=== PATIENT | male | born 1995 | race Caucasian/White ===

== ENCOUNTER 2020-07-01 14:29 | Emergency (ER) | payer OTHER, SELFPAY ==
[2020-07-01 14:35] VITALS: BP 131/69; PULSE 89; RESP 18; TEMP 37.2; O2SAT 99
[2020-07-01] MEDS: DEXAMETHASONE 10 MG/ML VIAL PO (15:21)
[2020-07-01] MEDS: AMOXICILLIN 250 MG CAPSULE 500 MG PO (15:22)
--- NOTE | 2020-07-01 21:33 | ED_ITS ---
HPI - URI/Sore Throat <LILIYA Jara - Last Filed: 07/01/20 22:27> General Chief Complaint: Upper Respiratory Symptoms Stated Complaint: headche. 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 Patient reports swelling into left-sided lymph nodes and started to have mild dry cough today. Patient denies recent travel or exposure to known people who has COVID-19 or similar illness. Patient denies difficulty breathing or swallowing. He had taken Tylenol yesterday and Motrin 2 days ago. He denies unusual rashes, nuchal rigidity, muffled voice. Patient reports T-max at home was 101.0 F couple of days ago which resolved today. Related Data Home Medications Medication Instructions Recorded Confirmed No Known Home Medications 07/01/20 07/01/20 Previous Rx's Medication Instructions Recorded amoxicillin 500 mg PO BID 10 Days #20 cap 07/01/20 Allergies Allergy/AdvReac Type Severity Reaction Status Date / Time No Known Drug Allergies Allergy Verified 07/01/20 14:38 Review of Systems <LILIYA Jara - Last Filed: 07/01/20 22:27> Review of Systems Narrative: General: See HPI HEENT: See HPI Respiratory: Denies dyspnea, cough, wheezing, hemoptysis, sputum. Cardiovascular: Denies chest pain, palpitations, orthopnea, edema. Gastrointestinal: Denies nausea, vomiting, abdominal pain, diarrhea, constipation, melena. : Denies dysuria, frequency, incontinence, hematuria, urinary retention. Musculoskeletal: Denies weakness, joint pain or bony pain. Skin: Denies rash, skin lesions, or other. Neurologic: Denies weakness, (+) headache, numbness, change in speech, confusion, seizures, incoordination. Psychiatric: No concerning psychosocial issues. 12-point review of systems is negative except for those stated above. Patient History <LILIYA Jara Last Filed: 07/01/20 22:27> Medical History (Updated 07/01/20 @ 22:10 by LILIYA Jara) No significant past medical history (Acute) Surgical History (Updated 07/01/20 @ 22:10 by LILIYA Jara) No pertinent past surgical history (Acute) Social History Smoking Status: Never smoker Smoking Status: Never smoker alcohol intake frequency: a few times a month Substance Use Type: does not use Exam <LILIYA Jara - Last Filed: 07/01/20 22:27> Narrative Exam Narrative: GEN: Alert, oriented x 3, well appearing and nourished, and in no acute distress. Head: Normal cephalic, atraumatic. No scalp or temporal tenderness, palpable mass or rash. EYES: Pupils are equal, round, and reactive to light and accommodation. Extraocular muscles are intact bilaterally. There is no subconjunctival hemorrhage, exudate and sclera non-icteric. ENT: Bilateral auditory canals and tympanic membranes clear. Hearing grossly intact. Nose without bleeding, purulent discharge or deviation. Facial sinuses nontender to palpate. Mucous membrane moist, no mucosal lesion. Throat with erythema, tonsillar hypertrophy and exudate. Uvula in midline, airway patent. Neck: Trachea in midline and No JVD. Tender lymphadenopathy in anterior cervical and supra clavicle lymph nodes in left-sided. No masses or thyroid megaly. Supple, non-tender and no meningeal signs. CARDIAC: Normal regular rate and rhythm without murmurs, gallops, or rubs. No chest wall tenderness. No peripheral edema, cyanosis or pallor. Capillary refill is less than 2 seconds. RESPIRATORY: Lungs are clear to auscultate bilaterally. No cough, wheezes, rales, or rhonchi. No stridor, respiratory distress, increase work of breathing, or accessary muscle used. ABD: Abdomen soft, nontender and non-distended. No guarding or rebound tenderness to palpate. Bowel sounds are normal in all 4 quadrants. There is no palpable masses or organomegaly. EXT: Full painless ROM of all extremities with no loss of sensation, strength, effusion or edema. SKIN: Warm, dry, normal color for patient. No erythema, lesions or rash over visible areas. BACK: Nontender without deformity or crepitance. No flank tenderness. NEUROLOGICAL: Alert and oriented to place, time and person. Sensation and motor function intact bilaterally. No facial droops, dysphasia. PSYCHIATRIC: Good judgement and reason, without hallucinations, abnormal affect or abnormal behaviors during the examination. Patient is not suicidal. Initial Vital Signs Initial Vital Signs: Vital Signs Temperature 98.9 F 07/01/20 14:35 Pulse Rate 89 07/01/20 14:35 Respiratory Rate 18 07/01/20 14:35 Blood Pressure 131/69 07/01/20 14:35 Pulse Oximetry 99 07/01/20 14:35 <Crystal Fowler DO - Last Filed: 07/02/20 07:11> Initial Vital Signs Initial Vital Signs: Vital Signs Temperature 98.9 F 07/01/20 14:35 Pulse Rate 89 07/01/20 14:35 Respiratory Rate 18 07/01/20 14:35 Blood Pressure 131/69 07/01/20 14:35 Pulse Oximetry 99 07/01/20 14:35 Scores <LILIYA Jara - Last Filed: 07/01/20 22:27> GCS Maribel coma scale eye opening: Spontaneous Maribel coma scale verbal response: Orientated Maribel coma scale motor response: Obey commands Maribel coma scale total score: 15 Citation: Centor score 4 Course <LILIYA Jara - Last Filed: 07/01/20 22:27> Orders Ordered: Discontinued Medications Amoxicillin (Trimox) 500 mg PO NOW ONE Stop: 07/01/20 15:13 Last Admin: 07/01/20 15:22 Dose: 500 mg Documented by: DAMIAN Dexamethasone (Decadron) 10 mg PO NOW ONE Stop: 07/01/20 14:56 Last Admin: 07/01/20 15:21 Dose: 10 mg Documented by: DAMIAN Vital Signs Vital signs: Vital Signs - 8 hr 07/01/20 14:35 Temperature 98.9 F Pulse Rate 89 Respiratory Rate 18 Blood Pressure 131/69 Pulse Oximetry 99 <DO Panchito Mcpherson Last Filed: 07/02/20 07:11> Orders Ordered: Discontinued Medications Amoxicillin (Trimox) 500 mg PO NOW ONE Stop: 07/01/20 15:13 Last Admin: 07/01/20 15:22 Dose: 500 mg Documented by: DAMIAN Dexamethasone (Decadron) 10 mg PO NOW ONE Stop: 07/01/20 14:56 Last Admin: 07/01/20 15:21 Dose: 10 mg Documented by: DAMIAN Vital Signs Vital signs: Vital Signs - 8 hr 07/01/20 14:35 Temperature 98.9 F Pulse Rate 89 Respiratory Rate 18 Blood Pressure 131/69 Pulse Oximetry 99 MDM - URI/Sore Throat <LUANN JaraP - Last Filed: 07/01/20 22:27> Differential Diagnosis Differential diagnosis: Likely upper respiratory infection, otitis media, pharyngitis and other (Strep pharyngitis, mononucleosis infection) Medical Records Attestation: I reviewed the patient's medical records. Lab Data Attestation: I reviewed the patient's lab results. Labs: Point of Care Testing Rapid Strep A Negative MDM Narrative Medical decision making narrative: POC strep throat test was negative. However patient's physical exam is highly likely strep infection with erythema, hypertrophic tonsils with white exudate. Throat culture is pending. Considered Infectious monoinfection however patient is not toxic appearing or endorses severe fatigue and has normal sounding voice and has only on one side lymphadenopathy. Will treat with Amoxicillin as bacterial pharyngitis at this time and medicated with 1st dose in ED. Patient declined Tylenol and or Motrin in ED. He was medicated with dexamethasone orally for sore throat and swelling. Patient informed if he develops rash with amoxicillin use, it is likely the patient has mononucleosis infection. Advised to avoid contact sports to protect spleen. Return precautions were discussed with patient and advised to use ov [id number] Tylenol and or Motrin as needed for discomfort and to follow-up with primary care physician in couple of days. If rash develops, patient advised to stop taking amoxicillin and he verbalized the understanding and agreement with the treatment plan. <Crystal Fowler DO - Last Filed: 07/02/20 07:11> Lab Data Labs: Point of Care Testing Rapid Strep A Negative Discharge Plan Departure Patient Disposition: Home Clinical Impression: Pharyngitis Qualifiers: Pharyngitis/tonsillitis etiology: unspecified etiology Qualified Code(s): J02.9 - Acute pharyngitis, unspecified Discharge Date/Time: 07/01/20 15:38 Instructions: DI for Pharyngitis/Tonsillopharyngitis -- Adult Activity Restrictions/Additional Instructions: You have been diagnosed with [pharyngitis. Although strep throat POC test was negative today, formal throat culture has been sent out to lab which is pending. Will treat you with antibiotic medication amoxicillin twice a day for 10 day course it appears like strep infection. If you develop a rash after the amoxicillin, there is a high chance you have a mono infection. Then, stop the antibiotic medication since this is caused by a virus.]. What to do: *Take your medications as directed. You can take [id number] Tylenol and or Motrin as needed for discomfort and fever. Tylenol 650-1000 mg 3 to 4 times a day as needed. Ibuprofen 400-600 mg up to 3 to 4 times a day as needed with food to decrease GI irritation. Please do not share utensils, food, drinks without others. *Follow up with your primary care provider in 2-3 days, call for an appointment. Let them know you were seen in the ED and that we asked you to be seen in follow up. *Return to ED if you have any new, worsening, or concerning symptoms, such as [severe pain, swelling in her throat, difficulty swallowing or breathing, chest pain, unable to tolerate fluids or any acute concerns]. Prescriptions: New amoxicillin 500 mg capsule 500 mg PO BID 10 Days Qty: 20 RF: 0 No Action No Known Home Medications RF: 0 Referrals: [facility] [Outside] <Crystal Fowler DO - Last Filed: 07/02/20 07:11> Cosign ED Attending Angie Attestation: I was immediately available in the [facility] tme for consultation. Documentation has been reviewed. I agree with assessment and plan.
== END 2020-07-01 15:38 | disposition home or self-care (01) ==
PROVIDERS: Emergency Provider Nurse Practitioner Family
DX: J02.9 Acute pharyngitis, unspecified (principal); R51 Headache; R50.9 Fever, unspecified
CPT/HCPCS: 87070; 87880; 99283; J1100

== ENCOUNTER 2020-07-04 12:53 | Emergency (ER) | payer OTHER, SELFPAY ==
[2020-07-04 13:03] VITALS: BP 129/71; PULSE 100; RESP 18; TEMP 37.2; O2SAT 98; BMI 22.9
--- NOTE | 2020-07-04 13:15 | ED.SKABFB ---
HPI - Skin/Abscess/Foreign Bdy General Chief complaint: Upper Respiratory Symptoms Stated complaint: rash from a medication Time Seen by Provider: 07/04/20 13:03 Source: patient Mode of arrival: Ambulatory Limitations: no limitations History of Present Illness HPI narrative: The patient is a 24-year-old male who presents with rash. He was diagnosed with strep 5 days ago and started on amoxicillin. He continues to have sore throat he said is initially a sore throat caught little bit better but now continues to hurt. He now has a pruritic rash mostly on his hands and his back. He was tested for COVID19, then as well and it was negative. He denies any real fatigue. His throat culture is heavy mixed jessica MD complaint: rash Related Data Previous Rx's Medication Instructions Recorded amoxicillin 500 mg PO BID 10 Days #20 cap 07/01/20 clindamycin HCl 300 mg PO Q6H #30 cap 07/04/20 prednisone 50 mg PO DAILY #5 tab 07/04/20 Allergies Allergy/AdvReac Type Severity Reaction Status Date / Time No Known Drug Allergies Allergy Verified 07/04/20 13:02 Review of Systems Review of Systems ROS Unobtainable: All systems reviewed & are unremarkable except as noted in HPI and below Constitutional Constitutional: Denies chills, Denies fever(s), Denies lethargy and Denies weakness ENT Ears, Nose, Mouth, and Throat: Reports as per HPI and Reports sore throat Cardiovascular Cardiovascular: Denies chest pain, Denies irregular heart rhythm, Denies lightheadedness, Denies palpitations, Denies dyspnea, Denies dyspnea on exertion and Denies orthopnea Respiratory Respiratory: Denies cough, Denies dyspnea, Denies dyspnea on exertion and Denies wheezing Gastrointestinal Gastrointestinal: Denies abdominal pain, Denies change in bowel habits, Denies diarrhea, Denies nausea and Denies vomiting Integumentary/Breasts Skin/Breast: Reports as per HPI Neurologic Neurologic: Denies weakness Endocrine Endocrine: Denies palpitations Allergic/Immunologic Allergic/Immunologic: Denies wheezing Patient History Medical History No significant past medical history (Acute) Surgical History No pertinent past surgical history (Acute) Social History (Reviewed 07/04/20 @ 14:08 by NIDA Mcpherson Smoking Status: Never smoker Smoking Status: Never smoker alcohol intake frequency: a few times a week Substance Use Type: does not use Exam Initial Vital Signs Initial Vital Signs: Vital Signs Temperature 99.0 F 07/04/20 13:03 Pulse Rate 100 H 07/04/20 13:03 Respiratory Rate 18 07/04/20 13:03 Blood Pressure 129/71 07/04/20 13:03 Pulse Oximetry 98 07/04/20 13:03 GENERAL: Well-appearing, well-nourished and in no acute distress. HEENT: Head atraumatic,EOMI, pupils reactive, face symmetric, moist mucous membranes PHARYNX: Mild erythema no exudate no uvula deviation CARDIOVASCULAR: Regular rate and rhythm without murmurs, rubs or gallops. RESPIRATORY: Breath sounds equal bilaterally, no wheezes rales or rhonchi. ABDOMEN: Soft, nontender. Normoactive bowel sounds all 4 quadrants. No guarding or rebound. EXTREMITIES: Normal range of motion, no clubbing or edema. Neurovascularly intact NEUROLOGICAL: Alert and oriented x4. SKIN: Mild rash noted on low back no real hives. Hands between 1st and 2nd web spaces extremely erythematous and long with the palms of his hands he he has been scratching. No hives no lesions. Scores ABCD2 Citation: Lancet. 2006Nov 21;369(7425):283-92. Validation and refinement of scores to predict very early stroke risk after transient ischaemic attack. Leena SC1, Lev PM, Douglas MN, Geremias MF, Kaylen JS, Kelechi AL, Randy S. Course Orders Ordered: ED Orders 07/04/20 13:32 Monotest Stat Vital Signs Vital signs: Vital Signs - 8 hr 07/04/20 13:03 07/04/20 14:25 Temperature 99.0 F Pulse Rate 100 H 85 Respiratory Rate 18 14 Blood Pressure 129/71 124/71 Pulse Oximetry 98 99 MDM - Skin/Abscess/Foreign Bdy Lab Data Labs: Lab Results 07/04/20 Range/Units 13:32 Monoscreen Negative (Negative) MDM Narrative Medical decision making narrative: Patient's mono is in negative his throat is still erythematous but no exudate his this throat culture is negative for any specific bacteria however based on his clinical exam and still having symptoms I recommend is continuing on antibiotics will change it to clinda and start on prednisone Discharge Plan Departure Patient Disposition: Home Clinical Impression: Adverse drug reaction Qualifiers: Encounter type: initial encounter Qualified Code(s): T50.905A - Adverse effect of unspecified drugs, medicaments and biological substances, initial encounter Pharyngitis Qualifiers: Pharyngitis/tonsillitis etiology: unspecified etiology Qualified Code(s): J02.9 - Acute pharyngitis, unspecified Discharge Date/Time: 07/04/20 14:27 Instructions: DI for Viral Pharyngitis, DI for Adverse Drug Reaction -- Other Activity Restrictions/Additional Instructions: *You have been diagnosed with drug reaction *What to do: Your rashes please secondary to amoxicillin. Your strep is negative however I recommend changing her antibiotics. You do not have mono. *Continue to take medications as directed--> SENT TO [facility] IN [place] Stop taking amoxicillin Start taking clindamycin 300 mg every 6 hours for 7 days Prednisone 40 mg once a day for 5 days *Follow up with your primary care provider in 2-3 days *Return to ER if you should have increased sore throat, worsening rash [or] any new, worsening or concerning symptoms Prescriptions: New clindamycin HCl 300 mg capsule 300 mg PO Q6H Qty: 30 RF: 0 prednisone 50 mg tablet 50 mg PO DAILY Qty: 5 RF: 0 No Action amoxicillin 500 mg capsule 500 mg PO BID 10 Days Qty: 20 RF: 0
[2020-07-04 13:49] LABS: Monotest Negative (Negative)
[2020-07-04 14:25] VITALS: BP 124/71; PULSE 85; RESP 14; O2SAT 99
== END 2020-07-04 14:27 | disposition home or self-care (01) ==
PROVIDERS: Emergency Provider Emergency Medicine
DX: J02.9 Acute pharyngitis, unspecified (principal); T50.905A Adverse effect of unspecified drugs, medicaments and biological substances, initial encounter
CPT/HCPCS: 36415; 86318; 99281; 99282

== ENCOUNTER 2020-07-09 11:47 | Emergency (ER) | payer OTHER, SELFPAY ==
[2020-07-09 11:56] VITALS: BP 110/58; PULSE 84; RESP 15; TEMP 36.3; O2SAT 98
--- NOTE | 2020-07-09 15:29 | ED_ITS ---
HPI - URI/Sore Throat <LILIYA Jara - Last Filed: 07/10/20 00:45> General Chief Complaint: Upper Respiratory Symptoms Stated Complaint: Sore Throat and Swelling, Fatigue, Disorientation Time Seen by Provider: 07/09/20 14:29 Source: patient Mode of arrival: Ambulatory Limitations: no limitations History of Present Illness HPI Narrative: This is a 24 year old male, active duty [employer], nonsmoker, who presents to ED with significant other with chief complain of ongoing sore throat, swelling, pain full and swollen cervical lymph nodes for last 2 days. He thought initially sore throat and swelling was improving for 1st couple of days but it has worsened again. Patient was evaluated on 03/31/20 for sore throat and was treated with 1 dose of dexamethasone and discharged to home with amoxicillin presumptively treating for strep throat. At that time POC strep throat was negative and throat culture was sent out to lab. Throat culture result came back on 07/04/20 with heavy growth mixed resident jessica. He returned on 07/04/20 after he developed pruritus rashes mostly on back and hands. At that time Monospot was drawn which showed as negative and was discharged to home with prednisone 50 mg for 5 day course and changed antibiotic medication to clindamycin. Patient reports rash has resolved. Patient reports he had taken last dose this morning and has about 3 more days to complete clindamycin. Patient denies fever, chills, nausea or vomiting. He denies dyspnea or dysphagia. Patient contacted his primary care physician and was advised to going to ED for an evaluation. Related Data Home Medications Medication Instructions Recorded Confirmed clindamycin HCl 300 mg PO Q6HR 07/09/20 07/09/20 Allergies Allergy/AdvReac Type Severity Reaction Status Date / Time amoxicillin Allergy Intermediate Rash Verified 07/09/20 12:00 Review of Systems <LILIYA Jara - Last Filed: 07/10/20 00:45> Review of Systems Narrative: General: Denies fever, chills, fatigue, malaise, sweats. HEENT: See HPI Respiratory: Denies dyspnea, cough, wheezing, hemoptysis, sputum. Cardiovascular: Denies chest pain, palpitations, orthopnea, edema. Gastrointestinal: Denies nausea, vomiting, abdominal pain, diarrhea, constipation, melena. : Denies dysuria, frequency, incontinence, hematuria, urinary retention. Musculoskeletal: Denies weakness, joint pain or bony pain. Skin: Denies rash, skin lesions, or other. Neurologic: Denies weakness, headache, numbness, change in speech, confusion, seizures, incoordination. Psychiatric: No concerning psychosocial issues. 12-point review of systems is negative except for those stated above. Patient History <LILIYA Jara - Last Filed: 07/10/20 00:45> Medical History No significant past medical history (Acute) Surgical History No pertinent past surgical history (Acute) Social History Smoking Status: Never smoker Smoking Status: Never smoker alcohol intake frequency: a few times a week Substance Use Type: does not use Exam <LILIYA Jara - Last Filed: 07/10/20 00:45> Narrative Exam Narrative: General appearance: well developed, well nourished, in no acute distress. Head: normocephalic, atraumatic, no scalp lesions, non-tender. ENT: Bilateral auditory canals and tympanic membranes clear. Hearing grossly intact. Nose without bleeding, purulent discharge, septal hematoma or deviation. Turbinate without erythema or swelling. Facial sinuses nontender to palpate. Mucous membrane moist, no mucosal lesion. Throat with erythema, tonsillar hypertrophy and several small white spots in bilateral tonsils. Uvula in midline, airway patent. Neck/Thyroid: neck supple, full range of motion, no visible masses or meningeal signs. No JVD. Anterior cervical lymphadenopathy with palpation. Skin: no suspicious rashes, lesions over visible areas. Warm and dry and appropriate color for ethnicity. Heart: no clubbing, no cyanosis, no edema. S1 and S2 normal. RRR w/o murmurs, clicks, or bruits. Lungs: Breathing even and unlabored. No stridor. No accessory muscles used. Able to speak in full sentences. Chest: normal shape and expansion. Abdomen: non-obese, non-distended. Neurologic: alert and oriented. Cognitive exam, [employer] and PNS grossly intact on informal exam. Psych: good eye contact, normal affect. Initial Vital Signs Initial Vital Signs: Vital Signs Temperature 97.4 F L 07/09/20 11:56 Pulse Rate 84 07/09/20 11:56 Respiratory Rate 15 07/09/20 11:56 Blood Pressure 110/58 L 07/09/20 11:56 Pulse Oximetry 98 07/09/20 11:56 <Giovanny Matamoros MD - Last Filed: 07/24/20 09:08> Initial Vital Signs Initial Vital Signs: Vital Signs Temperature 97.4 F L 07/09/20 11:56 Pulse Rate 84 07/09/20 11:56 Respiratory Rate 15 07/09/20 11:56 Blood Pressure 110/58 L 07/09/20 11:56 Pulse Oximetry 98 07/09/20 11:56 Scores <LILIYA Jara - Last Filed: 07/10/20 00:45> ABCD2 Citation: Centor score 3 GCS [place] coma scale eye opening: Spontaneous [place] coma scale verbal response: Orientated Maribel coma scale motor response: Obey commands Maribel coma scale total score: 15 Course <LILIYA Jara - Last Filed: 07/10/20 00:45> Consultations Consultation #1: Dr. Felix (ENT) consulted and he was recommended to follow up tomorrow at the clinic by Dr. Valdes for an evaluation. No further treatment was recommended at this time. Time: 15:29 Vital Signs Vital signs: Vital Signs - 8 hr 07/09/20 11:56 Temperature 97.4 F L Pulse Rate 84 Respiratory Rate 15 Blood Pressure 110/58 L Pulse Oximetry 98 <Giovanny Matamoros MD - Last Filed: 07/24/20 09:08> Vital Signs Vital signs: Vital Signs - 8 hr 07/09/20 11:56 Temperature 97.4 F L Pulse Rate 84 Respiratory Rate 15 Blood Pressure 110/58 L Pulse Oximetry 98 MDM - URI/Sore Throat <LILIYA Jara - Last Filed: 07/10/20 00:45> Differential Diagnosis Differential diagnosis: Likely pharyngitis Medical Records Attestation: I reviewed the patient's medical records. Lab Data Attestation: I reviewed the patient's lab results. Labs: Point of Care Testing Rapid Strep A Negative MDM Narrative Medical decision making narrative: This is a 24 year old male and 3rd visit to ED since 07/01/20 for sore throat, swelling. He was intially started on Amoxicillin after the 1st visit presumptively to treat strep throat infection. POC for Strep A test was negative. Throat culture shows heavy mixed jessica. He developed pruritic rash in back and hands and return to ED on the . Monospot was negative at that time. Patient is antibiotic medication has changed from amoxicillin to clindamycin which he is currently taking. Patient completed prednisone 50 mg for 5 day course this morning. Patient reports initially sore throat had improved a little but now it has worsened with redness, swelling, exudate with cervical lymphadenopathy for last 2 days. Again strep A test is negative. Throat culture is pending. Consulted Dr. Felix (ENT) and arrange to follow-up tomorrow at ENT clinic by Dr. Valdes and clinic will call patient to set up an appointment. Patient advised to continue with his current antibiotic medication and to use [id number] Tylenol and or Motrin as needed for discomfort. Patient is afebrile with within normal vital signs. Given patient just completed prednisone this morning, will hold additional steroid therapy for swelling and pain. Patient had negative Monospot test 6 days ago and held repeating the the test. Return precautions were discussed with patient and patient verbalized understanding in agreement with treatment plan. <Giovanny Matamoros MD - Last Filed: 07/24/20 09:08> Lab Data Labs: Point of Care Testing Rapid Strep A Negative Discharge Plan Departure Patient Disposition: Home Clinical Impression: Pharyngitis Discharge Date/Time: 07/09/20 15:40 Instructions: DI for Pharyngitis/Tonsillopharyngitis -- Adult Activity Restrictions/Additional Instructions: You have been diagnosed with [pharyngitis. Please continue with your current medications.]. What to do: *Take your medications as directed. *Follow up with your primary care provider in 2-3 days, call for an appointment. Let them know you were seen in the ED and that we asked you to be seen in follow up. Follow-up with Dr. Valdes at [facility] tomorrow. Clinic will call you to set up an appointment. If you do not hear from them by mid afternoon tomorrow, please contact the office. *Return to ED if you have any new, worsening, or concerning symptoms, such as [unable to swallow, severe pain, difficulty breathing, chest pain, fever not managed with Tylenol or Motrin, unable to tolerate fluids or any acute concerns]. Prescriptions: No Action clindamycin HCl 300 mg capsule 300 mg PO Q6HR RF: 0 Referrals: [facility] [Outside] Geoff Valdes MD [Physician] -
[2020-07-09 15:39] VITALS: BP 130/60; PULSE 76; RESP 18; O2SAT 99
== END 2020-07-09 15:40 | disposition home or self-care (01) ==
PROVIDERS: Emergency Provider Nurse Practitioner Family
DX: J02.9 Acute pharyngitis, unspecified (principal); R21 Rash and other nonspecific skin eruption
CPT/HCPCS: 87880; 99281; 99282

== ENCOUNTER → 2021-01-02 11:17 | Outpatient (CLI) | payer OTHER, SELFPAY ==
[2021-01-02 13:17] LABS: COVID19 -Nasal RAPID Negative (Negative)
== END ==
PROVIDERS: Visit Provider Physician Assistant
DX: Z01.812 Encounter for preprocedural laboratory examination (principal); Z20.822 Contact with and (suspected) exposure to COVID-19
CPT/HCPCS: 87635

== ENCOUNTER 2021-01-03 09:55 | Day surgery (SDC) | payer OTHER, SELFPAY ==
[2021-01-03] VITALS (11 sets, daily range): BP systolic 110–142; BP diastolic 58–98; PULSE 64–105; RESP 12–17; TEMP 36.1–36.8; O2SAT 97–100; BMI 23.6
[2021-01-03] MEDS: LACTATED RINGERS 1,000 ML 42 ML IV (10:29)
--- NOTE | 2021-01-03 11:34 | PM.PREOP ---
Pre-operative Note COVID-19 COVID-19 status: Result pending Interval Note History & Physical reviewed/Exam performed by Physician: Yes Changes to H&P: No
--- NOTE | 2021-01-03 11:34 | PM.HP.1 ---
History of Present Illness History of Present Illness Date Patient Seen: 01/03/21 Time Patient Seen: 11:34 Chief complaint: Chronic tonsillitis, throat pain Narrative: 25-year-old male with history of chronic tonsillitis, throat pain, and upper airway obstruction, incompletely managed with medical therapy, presents for tonsillectomy and possible adenoidectomy. Last seen in the office 12/03/20, no interval changes, no recent cough, cold, or fever. Patient History Medical History Chronic tonsillitis Hypertrophy of tonsil Surgical History No pertinent past surgical history Family & Social History Social History: household members other Tobacco & Substance use: Tobacco type e-cigarettes Smoking Status Current every day smoker alcohol intake current alcohol intake frequency a few times a week Substance Use Type does not use Meds Home Medications and Allergies Home Medications Medication Instructions Recorded Confirmed Type No Known Home Medications 01/03/21 01/03/21 History Allergies Allergy/AdvReac Type Severity Reaction Status Date / Time amoxicillin Allergy Intermediate Rash Verified 01/03/21 10:13 clindamycin Allergy Rash Verified 01/03/21 10:13 prednisone Allergy Hives Verified 01/03/21 10:13 Review of Systems Review of Systems ROS: Yes All systems reviewed with the patient and are negative except as otherwise documented Exam Vital Signs (past 8 hours): - 01/03/21 10:16 Temperature 97 F L Pulse Rate 69 Respiratory Rate 17 Blood Pressure 121/71 Pulse Oximetry 97 Oxygen Delivery Method Room Air Narrative Exam Narrative: Well-developed well-nourished male in no acute distress. Heart regular rate and rhythm without murmur, lungs clear to auscultation bilaterally Assessment & Plan Assessment & Plan narrative: Assessment: 1. Chronic tonsillitis 2. Throat pain 3. Tonsillar hypertrophy Plan: Following discussion of the material risks benefits complications and alternatives, the patient elected to proceed with tonsillectomy and possible adenoidectomy.
--- NOTE | 2021-01-03 11:37 | PM.OP.1 ---
Operative Date/Time/Diagnoses Date of procedure: 01/03/21 Time of procedure: 12:38 Pre-op diagnosis: 1. Chronic tonsillitis 2. Throat pain 3. Tonsillar hypertrophy Post-op diagnosis: same Procedure & Clinicians Procedure: Tonsillectomy and adenoidectomy Same procedure as scheduled: Yes Indications: 25-year-old male with the above diagnoses incompletely managed with medical therapy presents for the above procedure. Following discussion of the material risks benefits complications and alternatives, he elected to proceed. Surgeon: Geoff Valdes Click Yes if Unassisted: Yes Anesthesia Type: General and Local Operative Notes Findings: Intact palate, single uvula, 3+ tonsils, 1+ adenoids Closure Type: not applicable Specimen(s): none sent Estimated Blood Loss (mL): 10 Blood products transfused: none Procedure in detail: Following identification and confirmation of consent the patient was brought to the operating room suite and placed in the supine position. General endotracheal anesthesia was administered. A head wrap, shoulder roll, and mouth gag were placed and a red rubber catheter was inserted through the nostril and out the mouth to retract the soft palate. Partially obstructive adenoid tissue was ablated with suction electrocautery on a setting of 40, without injury to the eustachian tube orifices or choana. The left tonsil was retracted medially and suction electrocautery on a setting of 30 was used to dissect the tonsil in a subcapsular plane, followed by hemostasis with the same. This process was repeated on the right side with identical findings. The tonsillar fossae were superficially infiltrated bilaterally with a 1:1 mixture of 1% lidocaine 1 100,000 epinephrine and 0.5% Marcaine 1 to 200346 epinephrine. Mouth gag and rubber catheter were removed and the patient was extubated in the operating room and taken to the recovery room in stable condition without known complication. Complications: none Post-operative Condition: stable Disposition: same day surgery Plan for aftercare: DC home, alternate Tylenol and Advil every 3 hours, oxycodone for breakthrough pain. Push fluids, at least 3-4 L daily, no heavy lifting or straining.
--- NOTE | 2021-01-03 12:14 | SUR.OPER ---
Supine on padded OR bed, head on pillow, arms secured on padded arm boards at <90 degrees abduction, legs uncrossed, safety belt at thigh, tape over blanket over lower legs.
[2021-01-03] MEDS: LIDOCAINE 1% W/EPI 20 ML INJ (12:19)
[2021-01-03] MEDS: BUPIVACAINE 0.5% W/ EPI (PF) 30 ML VIAL INJ (12:20)
[2021-01-03] MEDS: OXYCODONE/ACETAMINOPHEN 5/325 TABLET 1 TAB PO ×2 (12:50→14:26)
[2021-01-03] MEDS: ONDANSETRON 4 MG/2 ML INJ IV (12:52)
== END 2021-01-03 14:30 | disposition home or self-care (01) ==
PROVIDERS: Referring Provider Otolaryngology; Visit Provider Otolaryngology
PROC: (CPT 42821; principal; 2021-01-03 11:15)
DX: J35.01 Chronic tonsillitis (principal)
CPT/HCPCS: 42821; J1100; J2250; J2405; J2704; J3010

== ENCOUNTER 2021-01-06 20:15 | Emergency (ER) | payer OTHER, SELFPAY ==
[2021-01-06 20:37] VITALS: BP 130/79; PULSE 74; RESP 20; TEMP 36.6; O2SAT 97; BMI 23.6
[2021-01-06] MEDS: ONDANSETRON 4 MG ODT SL (20:44)
[2021-01-06] MEDS: TRANEXAMIC ACID 1,000 MG VIAL 1000 MG INH (20:51)
--- NOTE | 2021-01-06 21:01 | PC.NURSE ---
Pt reports recent tonsillectomy and bleeding from operative site starting tonight. No active bleeding noted at this time.
--- NOTE | 2021-01-06 22:23 | ED.GENADULT ---
HPI - General Adult General Chief complaint: Dental/Oral Stated complaint: tonsilectomy, bleeding Time Seen by Provider: 01/06/21 20:34 Source: patient Mode of arrival: Family Vehicle Limitations: no limitations History of Present Illness HPI narrative: Otherwise healthy 25-year-old gentleman who is 3 days postop tonsillectomy. Has been healing nicely. Coughed and had a bit of debris dislodged and then some bleeding that continues to drill down the back of his throat. He comes in for further evaluation. His partner does notice that it looked like a bit of blood clot/scab did come out initially. Bleeding is controlled but still dribbling down the back of his throat on initial presentation. He is able to speak in full sentences, not complaining of pain, dizziness, palpitations, fever, abdominal pain. Related Data Home Medications Medication Instructions Recorded Confirmed No Known Home Medications 01/03/21 01/03/21 Allergies Allergy/AdvReac Type Severity Reaction Status Date / Time amoxicillin Allergy Intermediate Rash Verified 01/06/21 20:40 clindamycin Allergy Rash Verified 01/06/21 20:40 prednisone Allergy Hives Verified 01/06/21 20:40 Review of Systems Review of Systems Narrative: All systems reviewed and otherwise unremarkable Patient History Medical History Chronic tonsillitis Hypertrophy of tonsil Surgical History No pertinent past surgical history Social History household members: other Smoking Status: Current every day smoker alcohol intake: current Smoking Status: Current every day smoker alcohol intake frequency: a few times a week Substance Use Type: does not use Exam Narrative Exam Narrative: General: Healthy appearing, in no acute distress. Able to give a complete and coherent history. HEENT: Moist mucous membranes, normal sclera with reactive pupils, scabs over both tonsillar fossa. On the right side there appears to be a bit of the posterior scab that has peeled away and there was some minor bleeding on that side Respiratory: Lungs are clear to auscultation, no wheezing no rales no rhonchi. Full and symmetrical air movement Cardiac: Regular rate and rhythm no murmurs no bruits Abdomen: Soft, nontender, good bowel tones, no flank pain Skin: Warm and dry, no rashes Initial Vital Signs Initial Vital Signs: Vital Signs Temperature 97.9 F 01/06/21 20:37 Pulse Rate 74 01/06/21 20:37 Respiratory Rate 20 01/06/21 20:37 Blood Pressure 130/79 01/06/21 20:37 Pulse Oximetry 97 01/06/21 20:37 Course Orders Ordered: Discontinued Medications Ondansetron HCl (Ondansetron 4 Mg Odt) 4 mg SL NOW ONE Stop: 01/06/21 20:39 Last Admin: 01/06/21 20:44 Dose: 4 mg Documented by: TANISHA Tranexamic Acid (Tranexamic Acid 1,000 Mg Vial) 1,000 mg INH NOW ONE Stop: 01/06/21 20:38 Last Admin: 01/06/21 20:51 Dose: 1,000 mg Documented by: TANISHA Vital Signs Vital signs: Vital Signs - 8 hr 01/06/21 20:37 Temperature 97.9 F Pulse Rate 74 Respiratory Rate 20 Blood Pressure 130/79 Pulse Oximetry 97 Medical Decision Making Medical Records Medical records reviewed: Yes I reviewed the patient's medical records. MDM Narrative Medical decision making narrative: 25-year-old gentleman with postoperative bleeding after some of the peritonsillar scab has dislodged. He is given Zofran to help with any nausea and prevent any future vomiting and nebulized TXA. The nebulized TXA has been entirely effective in stopping all bleeding from the tonsillar fossa. He is safe for home discharge Discharge Plan Departure Patient Disposition: Home Clinical Impression: Postoperative haemorrhage of tonsil Instructions: DI for Tonsillectomy-Adult Activity Restrictions/Additional Instructions: Thank you for coming in this evening I believe a bit of the scab pulled away from the right tonsillar pillar. The bleeding that you had was easily controlled using nebulized TXA. I have given you some Zofran to help prevent any nausea, vomiting after tonsillectomy is awful. I hope you feel better. Please continue with all the usual postoperative recommendations. If you have recurrent bleeding please return to the emergency department Prescriptions: No Action No Known Home Medications RF: 0 Referrals: Marcus Bianchi [Primary Care Provider] -
[2021-01-06 22:45] VITALS: BP 119/66; PULSE 68; RESP 16; TEMP 36.6; O2SAT 97
== END 2021-01-06 22:49 | disposition home or self-care (01) ==
PROVIDERS: Emergency Provider Emergency Medicine
DX: Z98.890 Other specified postprocedural states (principal); R04.1 Hemorrhage from throat
CPT/HCPCS: 99281